=== PATIENT | female | born 1935 | race Caucasian/White ===

== ENCOUNTER 2016-05-31 21:51 | Inpatient (IN) | payer OTHER ==
[2016-05-31] MEDS ORDERED: ETOMIDATE 20 MG/10 ML VIAL IVP ONE (22:07)
[2016-05-31] MEDS ORDERED: ROCURONIUM 100 MG/10 ML VIAL IVP ONE ×2 (22:08→22:15)
[2016-05-31] MEDS ORDERED: PROPOFOL 200 MG/20 ML VIAL IVP ONE (22:11)
[2016-05-31 22:13] LABS: % IMMATURE GRANULYOCYTES 0.7 % (0.0-1.1); ABSOLUTE IMMATURE GRANULOCYTES 0.11 10^3/uL (0.00-0.10); ADD DIFF? NO; ADD MORPH? NO; ADD SCAN? NO; ATYPICAL LYMPHOCYTE FLAG 0 (0-99); FRAGMENT RBC FLAG 0 (0-99); HEMATOCRIT 46.5 % (38.0-47.0); HEMOGLOBIN 16.1 g/dL (12.6-16.3); LEFT SHIFT FLG 0 (0-99); LIPEMIA HEMOLYSIS FLAG 90 (0-99); MEAN CELL HEMOGLOBIN CONCENTR. 34.6 g/dL (32.4-36.7); MEAN CELL VOLUME 92.4 fL (81.5-99.8); PLATELET CLUMPS FLAG 0 (0-99); PLATELET COUNT 314 10^3/uL (150-400); RED BLOOD CELL COUNT 5.03 10^6/uL (4.18-5.33); RED CELL DISTRIBUTION WIDTH 12.7 % (11.5-15.2)
[2016-05-31] MEDS ORDERED: IOPAMIDOL (ISOVUE 370) 100 ML BTL IV ONE (22:14)
[2016-05-31] MEDS ORDERED: NS 2,000 ML IV ONE (22:14)
[2016-05-31] MEDS ORDERED: PROPOFOL/EMULSION 50 ML IV ONE (22:15)
[2016-05-31] MEDS: PROPOFOL/EMULSION 100 ML IV SCH (22:17)
--- NOTE | 2016-05-31 22:18 | CPEKG ---
Heart Rate: 127 RR Interval: 472 P-R Interval: 152 QRSD Interval: 74 QT Interval: 281 QTC Interval: 409 P Beason: 85 QRS Beason: -67 T Wave Beason: 79 EKG Severity - ABNORMAL ECG - EKG Impression: SINUS TACHYCARDIA , frequent PAC EKG Impression: LAD, CONSIDER LEFT ANTERIOR FASCICULAR BLOCK EKG Impression: BORDERLINE T ABNORMALITIES, ANT-LAT LEADS Electronically Signed By: Teddy Diamond 01-Jun-2016 22:25:38
[2016-05-31 22:22] LABS: INR 1.04 (0.83-1.16); PROTIME(PATIENT) 13.5 SEC (12.0-15.0)
[2016-05-31 22:23] LABS: APTT 25.4 SEC (23.0-38.0)
--- NOTE | 2016-05-31 22:23 | EDPHY ---
H & P HPI/ROS: HPI CHIEF COMPLAINT: Found down unresponsive, Intially Full Trauma Alert. HISTORY OF PRESENT ILLNESS: This patient is a 80-year-old female, she is brought in by EMS as a full trauma alert, she was found down by police and family after a well Fair checked. According to EMS and family at bedside now patient was found in her bathroom next to her toilet she was last seen or talked to at 5:00 p.m. last night.(over 24 hours a go, 5PM from previous day) The family became concerned that they could not get a hold of her last night or today. They realized when they arrived to her house her house was all dark there are no lights on her trash cans were still out front. The patient presents emergency room with she is not moving her right side she has a left-sided gaze preference. She is not protecting her airway, and due to this after discussion with family specifically her son nehemiah ferrell they wished her to be placed on a ventilator. Her neurological exam prior to being paralyzed showed right-sided hemiparesis, left-sided gaze preference. She has obvious trauma to the right periorbital region with swelling. Her pupils were equal round react to light however she does have a left gaze preference. It Is noted this patient initially came in as a full trauma alert. I downgraded this patient as she does not meet full trauma alert criteria. Past Medical History: Neuropathy Past Surgical History: unknown at this time Social History: Lives independently alone, private residence, denies drugs alcohol tobacco products per family Family History: Noncontributory ROS REVIEW OF SYSTEMS: A comprehensive 10 point review of systems is otherwise negative aside from elements mentioned in the history of present illness. Exam Constitutional triage nursing summary reviewed, vital signs reviewed, somnolent Eyes normal conjunctivae and sclera, EOMI, 3 mm equal round react to light left gaze preference HENT Head/Neck: Periorbital swelling around the right orbit, patient is placed in cervical collar, dry mucous membranes, no epistaxis, neck supple/ no meningismus, no raccoon eyes. Respiratory clear to auscultation bilaterally, normal breath sounds, no respiratory distress, no wheezing. Cardiovascular rate normal, regular rhythm, no murmur, no edema, distal pulses normal. Gastrointestinal soft, non-tender, no rebound, no guarding, normal bowel sounds, no distension, no pulsatile mass. Genitourinary no CVA tenderness. Musculoskeletal right-sided hemiparesis Skin pink, warm, & dry, no rash, skin atraumatic. Neurologic left-sided gaze preference, right-sided hemiparesis. Psychiatric normal mood/affect. Heme/Lymph/Immune no lymphadenopathy. Differential Diagnosis: Includes but is not limited to in no particular order a CVA, MCA infarct, head bleed, cardiac arrest, acute WA, sepsis, electrolyte abnormality, rhabdomyolysis, dehydration, renal failure Medical Decision Making: This patient has an obvious right-sided hemiparesis left-sided gaze preference concerning for stroke versus bleed. Patient will be intubated at the family's request. She will then proceed to CT scan head and neck for trauma as well as angiogram head and neck to visualize large vessel occlusion. Will obtain EKG, blood work including electrolytes, CK for rhabdo, she will be hydrated with IV fluids. It is noted she is hemodynamically stable at this time. This patient have a Steward placed. She received IV fluid bolus normal saline. She will be sedated with propofol to keep her comfortable on the ventilator. Re-evaluation: EKG interpretation by me on record in [employer] system. Impression time of EKG 05/16/1956 this is the initial EKG this is sinus rhythm, rate of 86 there is some motion artifact there is noted to be some ST depression in inferior leads. Left anterior fascicular block present. 2nd EKG time of EK, this is sinus tachycardia rate of 127 again there is slight ST depression seen in lead to [address] elevation visualized. There is sinus arrhythmia present. ED x-ray chest one view: cardiac silhouette is normal in size. Endotracheal tube is in appropriate position above the brigid. There is both lung rincon are appropriate. No pneumothorax. Image interpreted by myself. CT scan of the head without IV contrast for trauma. The results of the study are significant for a intraparenchymal left basal ganglia bleed The study was read by Dr. English. I viewed the images myself on the PACS system. CT scan of the cervical spine without IV contrast for trauma. The results of the study arenegative for acute trauma The study was read by Dr. English I viewed the images myself on the PACS system. CT scan of the angiogram head for stroke. The results of the study are negative for acute occlusion The study was read by Dr. English. I viewed the images myself on the PACS system. CT scan of the angiogram neck for stroke. The results of the study are negative for acute occlusion. The study was read by Dr. English. I viewed the images myself on the PACS system. 2240: Spoke with Dr. Banerjee with NeuroSurgery: She did review the CT imaging. She does understand this patient has a left basal ganglia bleed. She did recommend the patient's sodium be kept appropriate level 145. She will see the patient in consult in the ICU. No acute neurosurgical intervention at this time. Critical Care: Total Critical Care Time Spent Managing this Patient: 60 Minutes. This time was spent Exclusively with this patient. This Care was exclusive of procedures. The Organ System/life at risk was Neurological This Patient was in Critical Condition because Found down, Resp Failure, Rhabdomyolysis, Dehydration, Large Left Basal Ganglia Stroke. 2341: I have updated this patient's family this patient has a intraparenchymal basal ganglia bleed. She is in critical condition. She will be moved to the ICU under the care of Dr. Rodriguez hospitalist service. Keppra has been given. She is hemodynamically stable comfortable on ventilator. Source: Family, EMS Constitutional: Initial Vital Signs Temperature (C) 37.0 C 05/31/16 21:52 Heart Rate 93 05/31/16 21:52 Respiratory Rate 18 05/31/16 21:52 Blood Pressure 138/76 H 05/31/16 21:52 O2 Sat (%) 100 05/31/16 21:52 O2 Delivery Mode Non-Rebreather Mask O2 (L/minute) 15 Allergies/Adverse Reactions: No Known Allergies Allergy (Unverified 05/31/16 23:20) Home Medications: Medication Instructions Recorded Pregabalin [LYRICA] 100 mg PO BID PRN 05/31/16 Multivitamins [Multivitamin (*)] 1 tab PO DAILY 06/01/16 traMADol [Ultram 50 mg (*)] 50 mg PO TID PRN 06/01/16 Medical Decision Making - Data Points Laboratory Results: Laboratory Results 05/31/16 21:55 05/31/16 21:55 Medications Given: Discontinued Medications Etomidate (Etomidate) 20 mg IVP EDNOW ONE Stop: 05/31/16 22:08 Last Admin: 05/31/16 22:07 Dose: 20 mg Sodium Chloride (Ns) 2,000 mls @ 0 mls/hr IV ONCE ONE PRN Reason: As Directed Stop: 05/31/16 22:15 Last Admin: 05/31/16 21:55 Dose: 2,000 mls Propofol (Diprivan 10 Mg/Ml (Premix)) 50 mls @ 0 mls/hr IV EDNOW ONE; As Directed PRN Reason: Protocol Stop: 05/31/16 22:16 Last Admin: 05/31/16 22:18 Dose: Not Given Levetiracetam 1,000 mg/ Sodium (Chloride) 110 mls @ 440 mls/hr IV EDNOW ONE Stop: 05/31/16 22:57 Last Admin: 05/31/16 23:12 Dose: 110 mls Sodium Chloride 308 meq/ (Sterile Water) 1,077 mls @ 100 mls/hr IV CONT NOEMI Stop: 11/28/16 02:29 Last Admin: 06/01/16 13:16 Dose: 1,077 mls Potassium Chloride (Potassium Cl 10 Meq (Premix)) 100 mls @ 100 mls/hr IV Q1H NOEMI Stop: 06/01/16 11:59 Last Admin: 06/01/16 13:16 Dose: 100 mls Potassium Chloride (Potassium Cl 20 Meq (Premix)) 50 mls @ 25 mls/hr IV ONCE ONE Stop: 06/01/16 20:09 Last Admin: 06/01/16 18:33 Dose: 50 mls Propofol (Diprivan) 40 mg IVP EDNOW ONE Stop: 05/31/16 22:12 Last Admin: 05/31/16 22:11 Dose: 40 mg Rocuronium [place] (Zemuron) 100 mg IVP EDNOW ONE Stop: 05/31/16 22:09 Last Admin: 05/31/16 22:08 Dose: 100 mg Departure - Departure Disposition: [facility] Acute Clinical Impression: Intraparenchymal hemorrhage of brain Respiratory failure Qualifiers: Chronicity: acute Respiratory failure complication: hypoxia Qualifier Code: ( J96.01) Acute respiratory failure with hypoxia Condition: Critical
[2016-05-31 22:25] LABS: ALANINE AMINOTRANSFERASE 42 IU/L (9-52); ALBUMIN 4.5 g/dL (3.5-5.0); ALKALINE PHOSPHATASE 80 IU/L (38-126); ANION GAP 14 mEq/L (8-16); ASPARTATE AMINOTRANSFERASE 70 IU/L (14-46); BILIRUBIN,TOTAL 1.9 mg/dL (0.1-1.4); BILIRUBIN-CONJUGATED 0.6 mg/dL (0.0-0.5); BILIRUBIN-UNCONJUGATED 1.3 mg/dL (0.0-1.1); CALCIUM 9.6 mg/dL (8.5-10.4); CARBON DIOXIDE 22 mEq/l (22-31); CHLORIDE 106 mEq/L (97-110); CREATININE 0.7 mg/dL (0.6-1.0); GLOMERULAR FILTRATION RATE > 60; GLUCOSE 153 mg/dL (70-100); MAGNESIUM 2.2 mg/dL (1.6-2.3); POTASSIUM 3.9 mEq/L (3.5-5.2); SODIUM 142 mEq/L (134-144); TOTAL PROTEIN 7.4 g/dL (6.3-8.2)
[2016-05-31 22:31] LABS: COLOR YELLOW; LEUKOCYTE ESTERASE,URINE NEGATIVE (NEGATIVE); NITRITE,URINE NEGATIVE (NEGATIVE)
[2016-05-31 22:36] LABS: TROPONIN I 0.101 ng/mL (0-0.034)
[2016-05-31 22:36] LABS: MUCUS 1+ /lpf (NONE-1+); RBC,URINE 15-25 /hpf (0-3)
[2016-05-31] MEDS ORDERED: levETIRAcetam 1,000 MG in NS 100 ML IV ONE (22:43)
[2016-05-31] MEDS ORDERED: ETOMIDATE 40 MG/20 ML INJ ONE ×2 (22:44→22:51)
[2016-05-31] MEDS ORDERED: ROCURONIUM 100 MG/10 ML VIAL ONE (22:52)
--- NOTE | 2016-05-31 22:55 | DX ---
Portable AP Supine Chest at 10:02 p.m. and 10:13 p.m. Clinical History: 80-year-old female found down. Comparison Study: None available. Findings: PORTABLE AP SUPINE CHEST, at 10:02 p.m.: Telemetry monitoring lead lines are present. There are postc holecystectomy clips in the right upper quadrant of the abdomen, and there is also a curvilinear clip in the left upper quadrant of the abdomen. The cardiac and mediastinal silhouette is normal in size, given the degree of rightward rotation. There is no focal alveolar consolidation, pleural effusion, peripheral interstitial edema, or pneumothorax. There are degenerative features of the spine. There i s no rib fracture. Impression: Rightward rotational change, with no acute abnormality identified. PORTABLE AP SUPINE CHEST, at 10:13 p.m.: In the interim, the patient has been intubated, with the ET tube terminating 5.4 cm above the brigid. Telemetry monitoring lead lines are noted. The patient is b shu-centered on this exam compared to the study at 10:02 p.m. The cardiac and mediastinal silhouett e is normal. There is no focal infiltrate, atelectasis, or pneumothorax. Impression: Status post intubation.
[2016-05-31 23:01] LABS: CK-MB INTERPRETATION NEGATIVE (NEGATIVE)
--- NOTE | 2016-05-31 23:40 | CT ---
CT Scan of the Head (Without Contrast) Clinical History: 80-year-old female last seen active at 5 p.m. yesterday, found down this evening an d not moving her right side. Technique: Axial unenhanced images were obtained from the vertex through the skull base, reformatted at 5.00 and 1.50 mm increments, and reviewed in bone, brain, and subdural windows. Images were repro cessed in parasagittal and paracoronal planes. Dose reduction techniques were utilized. The DFOV is 2 6.4 cm. Comparison Study: None. Findings: There is acute hemorrhagic infarct involving the left basal ganglia with a Hounsfield unit measurement of 56, with surrounding vasogenic edema. There is also effacement of the ipsilateral left lateral ventricle, and 4 mm of citv-wb-ilfzu subfalcine shift. There is extensive confluent chronic microvascular ischemic gliosis. The ventricles and basilar cisterns are otherwise normal in size, giv en the patient's age. The paranasal sinuses and the mastoids are patent. The craniocervical junction, sella turcica, pineal gland, and the orbits are within normal limits. There is extensive scalp edema along the right calvarium and also in the right periorbital distribution. There are a few dots of ai r over the right preseptal space. Each globe is intact. The retrobulbar intra and extraconal fat appe ar normal. The patient is intubated. There is chronic mucosal thickening of the maxillary ethmoid and frontal sinuses. Impression: 1. Acute left basal ganglia hemorrhagic infarct with some mass effect, and mild yoas-fl-dggqw subfalc ine herniation. 2. Extensive microvascular ischemic gliosis. 3. Scalp edema along the right calvarium and right periorbital region. If there is further clinical concern regarding the patient's symptoms, MR imaging is suggested, if n ot otherwise contraindicated. I provided an interpretation to Dr. Silviano Gonzalez at 10:31 p.m. on May 31, 2016 regarding the abo ve findings. He has also requested a CTA of the head and neck, which is to be performed.
[2016-05-31 23:43] LABS: BASE EXCESS -5.1 mEq/L (-2.5-2.5); BICARBONATE 19 mEq/L (22-26); MEASURED OXYGEN SATURATION 100 % (92-95); PCO2 35 mmHg (34-38); PO2 313 mmHg (65-75); TCO2 20 mEq/L (23-27)
[2016-05-31 23:45] LABS: END TIDAL CO2 31; O2 CONCENTRATIION 80 % (0-100); P/F RATIO 391 RATIO; PATIENT RATE 18; PIP 22.5; PRESSURE SUPPORT 7; SIMV YES
--- NOTE | 2016-05-31 23:49 | CT ---
Unenhanced CT Scan of the Cervical Spine Clinical History: 80-year-old female found down. Rule out acute cervical osseous abnormality. TECHNIQUE: A multidetector unenhanced helical CT scan was obtained from the clivus caudally through t he upper thoracic spine, with images reformatted at 1.50 mm increments, and are reviewed in soft tiss ue, bone, and lung windows. Parasagittal and paracoronal reconstructed images are reviewed on the wor kstation. The DFOV is 15.6 cm. COMPARISON STUDY: None. FINDINGS: The bones are demineralized. There is mild chronic loss of height of the posterior C6 centr um with large dorsal and smaller ventral traction osteophytes present. There is some mild C5-C6 and m oderate C6-C7 degenerative disk space narrowing. There is no acute fracture or facet malalignment. Th ere is osseous fusion of the facet joints on the right at C4-C5 and C5-C6. The craniocervical junctio n is normal. The predental space is normal. The atlantoaxial alignment is maintained. The base and th e tip of the dens are unremarkable. The prevertebral soft tissues are notable for an intubation with the endotracheal terminating approximately 4 cm above the brigid on the diazo technician topogram. The lung apic es are clear. The thyroid gland is hypoplastic. There is no prevertebral hematoma or epidural hematom a identified. At the C2-C3 level, there is no significant central canal or neural foraminal stenosis. At the C3-C4 level, there is moderate bilateral facet hypertrophy with uncovertebral osteophyte forma tion resulting in mild bilateral neural foraminal stenosis. The central canal remains patent. At the C4-C5 level, there is moderate bilateral facet hypertrophy. The central canal and neural chen cat remain patent. At the C5-C6 level, there is severe right and moderate left facet hypertrophy. There is mild right ne ural foraminal narrowing. A small dorsal disk osteophyte complex results in mild right paracentral ca nal narrowing. The left neural foramen is patent. At the C6-C7 level, there is degenerative disk space narrowing with a dorsal disk osteophyte complex resulting in at least a moderate degree of central canal stenosis. Uncovertebral osteophytes and face t hypertrophy result in severe left and moderate right neural foraminal stenosis. At the C7-T1 level, there is no significant central canal or neural foraminal stenosis. Impression: Senescent features of the spine, most pronounced at the C6-C7 level, with no acute cervic al osseous abnormality identified. Results were discussed with Dr. Leandro Gonzalez at 11:15 p.m. on May 31, 2016. If there is further clinical concern regarding the patient's symptoms, correlative MR imaging could b e considered, if otherwise not contraindicated.
[2016-06-01] MEDS ORDERED: ONDANSETRON DISINTEGRATING 4 MG TAB PO PRN (00:05)
[2016-06-01] MEDS ORDERED: ONDANSETRON 4 MG/2 ML VIAL IVP PRN (00:05)
[2016-06-01] MEDS ORDERED: ACETAMINOPHEN 325 MG TAB PO PRN (00:05)
--- NOTE | 2016-06-01 00:06 | CT ---
CT Angiography of the Head and Neck Clinical History: 80-year-old female last seen active at 5 p.m. yesterday, and found down this evenin g, and not moving the right side of her body. Unenhanced CT imaging demonstrate an acute left basal g anglia hemorrhagic infarction. Dr. Gonzalez has also requested a CTA. Comparison Studies: Unenhanced CT scan of the brain performed at 10:25 p.m.. Technique: Axial contrast-enhanced images were obtained from the skull base through the thoracic inle t following the uneventful intravenous administration of 75 mL mL Isovue-370. Multiplanar reformatio ns were performed. Dose reduction techniques were utilized. Findings: CT ANGIOGRAPHY OF THE NECK: There is a common origin of the right innominate and left common carotid arteries ("bovine" configuration). The common carotid arteries, carotid bulbs and bifurcations, and t he internal and external carotid arteries are patent. There is tortuosity of the proximal left post graduate internship al carotid artery shortly after its origin. There is no intraluminal thrombus, eccentric stenosis, or dissection. The vertebral arteries are also patent bilaterally. The left vertebral artery has a "ellen rpin" turn near its origin. The vessels are relatively codominant. Impression: There is no hemodynamically significant stenosis, dissection, or intraluminal thrombus. CT ANGIOGRAPHY OF THE BRAIN: The distal cervical, petrous, cavernous, and supraclinoid portions of th e internal carotid arteries are patent. The M1, M2, M3 trifurcation vessels are patent, although ther e is some mild attenuation of the caliber of the more peripheral left middle cerebral artery vessels secondary to some edema or spasm associated with the known left basal ganglia hemorrhagic infarct. Th e A1 and A2 segments, and the anterior communicating artery are patent. There is no intraluminal thro mbus observed. The distal vertebral arteries, the vertebrobasilar confluence, the posterior inferior cerebellar arteries, basilar tip, superior cerebellar arteries, and the posterior cerebral arteries a re patent. 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 There is no localized aneur ysm. The visualized dural venous sinuses are notable for a dominant right transverse sinus and more d iminutive-appearing left transverse sinus. Likewise, there is a dominant right internal jugular vein, and a significantly attenuated left internal jugular vein. Impression: Left basal ganglia hemorrhagic infarction, precluding administration of thrombolysis. Results were discussed with Dr. Leandro Gonzalez at 11:15 p.m. on May 31, 2016. Stenoses are calculated using [place] Symptomatic Carotid Endarterectomy Trial (NASCET) criter ia.
[2016-06-01] MEDS ORDERED: SODIUM Cl 3% 500 ML IV SCH (00:15)
[2016-06-01] MEDS ORDERED: LABETALOL HCL 5 MG/ML 20 ML MDV IVP PRN (00:26)
[2016-06-01] MEDS ORDERED: NS 1,000 ML IV SCH (00:30)
--- NOTE | 2016-06-01 01:05 | GHP ---
[f rep st] HISTORY AND PHYSICAL DATE OF ADMISSION: 05/31/2016 DATE OF EVALUATION: 05/31/2016 CHIEF COMPLAINT: Found down. HISTORY OF PRESENT ILLNESS: This is a 80-year-old female who was found down today. She was last seen normal on 05/30/2016 around noon. The family suspects that she was normal until bedtime that evening. They became worried on May 31 when she did not return phone calls. Her son went over to her house, called police, eventually ended up gaining access to the house. He found her up in her bedroom, slumped on the side of her toilet, on the right side of her face. Her granddaughter was present at that time as well. She says that the patient was trying to pull herself up, though she was only using the left side of her body and the right side was paralyzed. EMS was called. She was taken to the emergency department. In the emergency department, Dr. Medina noted that she was nonresponsive. Family says that she had never spoken any words, though she became less responsive en route to the ED. She was intubated in the emergency department. When I am seeing her, she is intubated, on a low-dose propofol sedation. Family tells me that she is not taking any blood thinners including aspirin. PAST MEDICAL/SURGICAL HISTORY: Trigeminal neuralgia. MEDICATIONS: Tramadol. ALLERGIES: None. FAMILY HISTORY: Parents are . SOCIAL HISTORY: Accompanied by her 2 children as well as 2 grandchildren. Her a few years ago. REVIEW OF SYSTEMS: A 10-point review of systems is unobtainable given her current status. PHYSICAL EXAM: VITAL SIGNS: Blood pressure 138/76, heart rate 93, respiration rate 18, saturating 100% on the ventilator, temperature 37.0. GENERAL: The patient is an obtunded female who appears in no acute distress. HEENT: Shows an ET tube in place. CARDIOVASCULAR: Shows a regular rate and rhythm. There are no murmurs, rubs, or gallops. PULMONARY: Shows her lungs are clear to auscultation bilaterally. ABDOMEN: Soft, nontender, nondistended. SKIN: Shows no rash. : Shows a Steward in place. NEUROLOGIC: Shows her to have a Bosworth Coma Scale of 3. She is nonresponsive. She is flaccid on both sides. Reflexes are diminished and symmetric bilaterally. LAB DATA: White count is 16. INR is 1. ABG shows her pCO2 to be 35, her pH to be 7.36. Basic metabolic panel is unremarkable. Her unconjugated bilirubin is 1.3. Her AST is 70. Creatine kinase is 1597. Troponin of 0.101. Urinalysis shows her to have blood and protein. Tox screen is negative. DATA: 1. I discussed this with Dr. Medina, will admit to the ICU. 2. The head CT shows acute left basal ganglia hemorrhagic infarct with some mass effect and some mild [id number]-lr-[id number] subfalcine herniation as well as scalp edema. 3. CT angio of head and neck shows nothing significant in terms of stenosis. 4. Chest x-ray shows her to be intubated, there is nothing acute identified. 5. C-spine CT scan shows nothing acute. IMPRESSION AND PLAN: This is a 80-year-old female with a hemorrhagic infarct who is obtunded. Acute left basal ganglia hemorrhagic infarct: She is quite obtunded. There is some edema surrounding this. She does have mild midline shift. Dr. Valladares with Neurosurgery has been consulted and will follow. Per Dr. Valladares, this is nonoperative, she has reviewed the CT scans. I will place a neurology consult as well. We will attempt to keep her sodium above 145, I have started hypertonic saline. IV antihypertensives to keep systolic BP less than 140. I have discussed with the family the potential poor prognosis. They are aware of the severity of this insult. Billing: I spent 60 minutes of direct floor critical care time on 05/31/2016 caring for the patient. /[id number]/MODL MTDD
[2016-06-01] MEDS ORDERED: NS W/ 20 KCl/L 1,000 ML IV SCH (02:00)
[2016-06-01] MEDS: SODIUM CL 23.4% 308 MEQ in WATER FOR INJECTION,STERILE 1,000 ML IV SCH ×2 (02:38→13:16)
[2016-06-01] MEDS ORDERED: ACETAMINOPHEN 650 MG/20.3 ML UDCUP ONE (03:36)
[2016-06-01] MEDS ORDERED: ACETAMINOPHEN 650 MG/20.3 ML UDCUP PO PRN (03:38)
[2016-06-01 05:39] LABS: % IMMATURE GRANULYOCYTES 0.2 % (0.0-1.1); ABSOLUTE IMMATURE GRANULOCYTES 0.03 10^3/uL (0.00-0.10); ADD DIFF? NO; ADD MORPH? NO; ADD SCAN? NO; ATYPICAL LYMPHOCYTE FLAG 0 (0-99); FRAGMENT RBC FLAG 0 (0-99); HEMATOCRIT 40.1 % (38.0-47.0); HEMOGLOBIN 13.6 g/dL (12.6-16.3); LEFT SHIFT FLG 20 (0-99); LIPEMIA HEMOLYSIS FLAG 90 (0-99); MEAN CELL HEMOGLOBIN 31.5 pg (27.9-34.1); MEAN CELL HEMOGLOBIN CONCENTR. 33.9 g/dL (32.4-36.7); MEAN CELL VOLUME 92.8 fL (81.5-99.8); MEAN PLATELET VOLUME 9.2 fL (8.7-11.7); PLATELET CLUMPS FLAG 0 (0-99); PLATELET COUNT 243 10^3/uL (150-400); RED BLOOD CELL COUNT 4.32 10^6/uL (4.18-5.33); RED CELL DISTRIBUTION WIDTH 12.7 % (11.5-15.2)
[2016-06-01 05:49] LABS: INR 1.16 (0.83-1.16); PROTIME(PATIENT) 14.8 SEC (12.0-15.0)
[2016-06-01 05:58] LABS: CARBON DIOXIDE 23 mEq/l (22-31); CHLORIDE 114 mEq/L (97-110); POTASSIUM 3.1 mEq/L (3.5-5.2); SODIUM 145 mEq/L (134-144)
[2016-06-01 05:59] LABS: ALANINE AMINOTRANSFERASE 37 IU/L (9-52); ALBUMIN 2.8 g/dL (3.5-5.0); ALKALINE PHOSPHATASE 50 IU/L (38-126); ANION GAP 8 mEq/L (8-16); ASPARTATE AMINOTRANSFERASE 55 IU/L (14-46); BILIRUBIN,TOTAL 1.4 mg/dL (0.1-1.4); CALCIUM 8.4 mg/dL (8.5-10.4); CREATININE 0.6 mg/dL (0.6-1.0); GLOMERULAR FILTRATION RATE > 60; GLUCOSE 135 mg/dL (70-100); MAGNESIUM 1.9 mg/dL (1.6-2.3); TOTAL PROTEIN 5.5 g/dL (6.3-8.2)
[2016-06-01 06:06] LABS: TROPONIN I 0.362 ng/mL (0-0.034)
[2016-06-01 06:24] LABS: CK-MB INTERPRETATION NEGATIVE (NEGATIVE)
[2016-06-01 06:26] LABS: CREATINE KINASE-MB FRACTION 7.69 ng/mL (0-3.19)
[2016-06-01 06:28] LABS: BASE EXCESS -1.7 mEq/L (-2.5-2.5); BICARBONATE 21 mEq/L (22-26); MEASURED OXYGEN SATURATION 99 % (92-95); PCO2 32 mmHg (34-38); PO2 125 mmHg (65-75); TCO2 22 mEq/L (23-27)
[2016-06-01 06:30] LABS: O2 CONCENTRATIION 40 % (0-100); P/F RATIO 313 RATIO; PATIENT RATE 20; SIMV YES
[2016-06-01 06:31] LABS: PRESSURE SUPPORT 7
[2016-06-01] MEDS ORDERED: PROTOCOL POTASSIUM 1 DOSE MISC PRN ×2 (06:48→23:45)
--- NOTE | 2016-06-01 07:58 | CT ---
CT Scan of the Head (Without Contrast) Clinical History: 80-year-old female admitted last evening after being found down with a hemorrhagic left basal ganglia infarct and right-sided paralysis, presenting for follow-up. Technique: Axial unenhanced images were obtained from the vertex through the skull base, reformatted at 5.00 and 1.50 mm increments, and reviewed in bone, brain, and subdural windows. Images were repro cessed in parasagittal and paracoronal planes. Dose reduction techniques were utilized. The DFOV is 2 6.1 cm. Comparison Study: Unenhanced CT scan of the brain from last evening. Findings: Again noted is focal increased attenuation in the left basal ganglia with a Hounsfield unit measurement of 54, consistent with hemorrhage. There has been no interim development of more hemorrh age. There is associated mass effect with effacement of the left lateral ventricle and 4 mm of subfal cine shift, [id number]. There is extensive periventricular diminished attenuation, which is a nons pecific finding, and may be related to chronic microvascular ischemic gliosis the differential consid erations would include postinflammatory or posttraumatic change, demyelination, leukoencephalopathy, or prior radiation or systemic chemotherapy treatment. The brainstem and cerebellum are normal. There is a partially empty sella turcica. The craniocervical junction is normal. The orbits are unremarkable. There is some chronic paranasal sinus mucosal thick ening of the maxillary, ethmoid, sphenoid, and inferior frontal sinuses. The mastoids are patent. The re is some atherosclerotic calcification of the cavernous carotid arteries. Extensive right-sided sca lp edema is again noted. Impression: Findings are similar to last evening's exam, with no new hemorrhage. If there is further clinical concern regarding the patient's symptoms, MR imaging is suggested, if no t otherwise contraindicated.
[2016-06-01] MEDS: POTASSIUM Cl (KCl) 100 ML IV SCH ×4 (08:19→13:16)
[2016-06-01] MEDS: FAMOTIDINE 20 MG/NACL 50 ML IV SCH ×2 (08:19→20:16)
[2016-06-01] MEDS: PROPOFOL/EMULSION 100 ML IV SCH (08:19)
[2016-06-01] MEDS: CHLORHEXIDINE GLUCONATE 15 ML UDL PO SCH ×2 (08:19→20:18)
--- NOTE | 2016-06-01 08:57 | GCON ---
Seen and examined agree with dictation. [f rep st] CONSULTATION NEUROSURGERY CONSULTATION. CHIEF COMPLAINT: Altered mental status. Acute left basal ganglia hemorrhage. HISTORY OF PRESENT ILLNESS: The patient is a 80-year-old female patient, who was found down yesterday. She was last seen on May 30, 2016, around noon, and she was normal at that time. The patient's son had become concerned on May 31, when she did not return phone calls. Patient's son went to her home and called the police in order to gain access to the home. He found the patient in her bedroom, slumped down the side of her toilet on the right side of her face. The patient was trying to use the left side of her body to pull herself up, but her right side appeared paralyzed. EMS was called and the patient was transferred to [facility] emergency room. In the emergency room, the patient was nonresponsive and the patient was subsequently intubated. Currently, the patient is intubated, on low-dose propofol sedation. Per report from the family, patient was not on any blood thinners prior to hospital admission. PAST MEDICAL HISTORY: Trigeminal neuralgia. MEDICATIONS: Tramadol. ALLERGIES: None. FAMILY HISTORY: Parents are . SOCIAL HISTORY: The patient lives at home and her a few years ago. She has 2 children and 2 grandchildren in the area. REVIEW OF SYSTEMS: Unobtainable, given the patient is intubated and sedated. PHYSICAL EXAMINATION: VITAL SIGNS: Blood pressure 120/60, MAP is 80, heart rate 65, respirations 18, O2 saturation is 100% on the ventilator, temperature is 38. NEUROLOGIC: Patient withdraws to her left side to painful stimuli. She is not withdrawing the right side to painful stimuli. Her pupils are approximately 3 mm, nonreactive. She is on sedation. HEENT: She has some bruising and swelling over her face. IMAGING: Cervical spine CT: senescent features in the spine most pronounced at the C6-7 level with no acute cervical osseous abnormality identified. Chest x-ray: Rightward rotational change with no acute abnormality identified. Additional chest x-ray, status post intubation. Head CTA: Impression: Left basal ganglia hemorrhagic infarction precluding administration of thrombolysis. CTA: There is no hemodynamic dynamically significant stenosis, dissection, or intraluminal thrombus. Head CT: Acute left basal ganglia hemorrhagic infarct with some mass effect and mild [id number]-ru-zetuc subfalcine herniation. Extensive microvascular ischemic gliosis. Scalp erythema along the right calvarium and right periorbital region. LABORATORY DATA: White blood cells 12.3, red blood cells 4.32, hemoglobin is 13.6, hematocrit is 40.1, MCV is 92.8, RDW is 12.7, platelet count is 243. PT is 14.8, INR is 1.16. Blood gas: Temperature is 38, pCO2 of 32, pO2 of 125, total CO2 is 22, pH is 7.43, O2 saturation is 99. Sodium is 145, potassium is 3.1, chloride is 114, carbon dioxide 23, bicarb 21, anion gap 8, BUN 21, creatinine 0.6, GFR greater than 60. Glucose 135, calcium 8.4, phosphorus 2.5, magnesium 1.9. Bilirubin 1.4, AST is 55, ALT is 37, alkaline phosphatase 50. Creatine kinase 1362, troponin 0.362. Total protein 5.5, albumin 2.8. Urinalysis: Red blood cells 15-25, white blood cells 1-3, leukocyte esterase is negative. Toxicology screen is negative. IMPRESSION: This is a 80-year-old female, with acute left basal ganglia hemorrhagic stroke. PLAN: I have seen and examined the patient this morning. She has had a significant hemorrhage that is nonoperative at this time. She is undergoing a repeat scan this morning. At this time, would plan to elevate her sodium above 145 and she is on 1.8% sodium fluids. Sodium this morning is 145, so I will continue the fluids at their current rate. She is also on antihypertensive to keep her systolic blood pressure less than 140. The patient does appear to have right-sided paralysis, given that she will move the left side independently and also withdraws from pain; however, she is not moving her right side. Her condition is quite guarded at this time, Dr. Valladares will be in to see the patient later this afternoon. Please contact the neurosurgery service with any questions or concerns. /[id number]/MODL MTDD
--- NOTE | 2016-06-01 09:02 | DX ---
Portable AP Semiupright Upright Chest June 01, 2016 at 6:15 a.m. Clinical History: 80-year-old female admitted last evening with a hemorrhagic left basal ganglia infa rct, currently intubated. Comparison Study: The previous evening's chest radiograph is not currently available for comparison. Findings: There is an endotracheal tube which terminates 4.8 cm above the brigid. There is esophagoga stric tube which terminates in the gastric antrum. The cardiac and mediastinal silhouettes are normal in size. The patient is slightly rotated to the left. There is no focal infiltrate, pleural effusion , peripheral interstitial edema, or pneumothorax. There are postcholecystectomy clips in the right up per quadrant of the abdomen. There are senescent features of the spine. Impression: Status post intubation and placement of an esophagogastric tube.
--- NOTE | 2016-06-01 13:16 | WOCRNPDOC ---
WOCRN Advanced Assessment Note - Skin Integrity Problem, Advanced Assess Right Hip Pressure Injury Dressing Type: Allevyn Life Dressing Description: Clean/Dry, Intact Exudate Amount: Scant Exudate Color: Clear Exudate Characteristic(s): Clear Integumentary Issue Intervention: Visualized Under Dressing Bonnie Wound Tissue: Blanching, Erythema Bonnie Wound Swelling: Mild Wound Bed Color: Red Wound Bed Constitution: Smooth Tissue, De-roofed Serous Blister Wound Edges: Irregular Site Odor: None Site Measurement - Head-to-Toe Length X Width X Depth (cm): 7.5cmx8.5cmx0.1cm Pressure Injury Stage: Stage 2 Pressure Injury Present on Admit: Yes Skin Integrity Problem Comment: Large area of blanching and non-blanching erythema noted on R hip, w/ de-roofed blister on anterior aspect from 12-5 o' clock draining clear exudate. This wound is a mix of stage I and stage II pressure injuries, w/ the greatest portion consisting of the de-roofed blister, consistent w/ stage II. Site re-covered w/ Allevyn Life dressing, and orders written to off-load patient's R hip at all times. Right Orbital Pressure Injury Dressing Type: Open to Air Exudate Amount: None Exudate Characteristic(s): None Bonnie Wound Tissue: Erythema, Non-blanching Bonnie Wound Swelling: Mild Wound Bed Color: Red Wound Bed Constitution: Intact Serous Filled Blister Site Odor: None Pressure Injury Stage: Stage 1 (superior to blister on R eye, [id number]), Stage 2 (intact blister extending from R eyelid to below R eye, 3.8cmx4.5cmx blister ) Pressure Injury Present on Admit: Yes Skin Integrity Problem Comment: Large, intact serous blister extending from R eyelid to below the R eye, w/ erythema and swelling evident, consistent w/ stage II pressure injury. Patient also has an area of non-blanching erythema superior to blister, indicative of stage I. These injuries are consistent w/ report that patient was found in her home lying on her R side after an estimated 16-24 hours per family report. Due to location of this wound, site left open to air. Advised laundry route driverSIMEON Alvarado to re-consult if blister begins draining. Right Lateral Face Pressure Injury Dressing Type: Open to Air Exudate Amount: None Exudate Characteristic(s): None Bonnie Wound Tissue: Swollen Bonnie Wound Swelling: Mild Wound Bed Color: Red Site Measurement - Head-to-Toe Length X Width X Depth (cm): [id number] Pressure Injury Stage: Stage 1 Pressure Injury Present on Admit: Yes Skin Integrity Problem Comment: Large area on non-blanching erythema noted to the R side of patient's face, extending from her christian down her cheekbone and inferiorly. This injury is consistent in appearance w/ a stage I pressure injury. Bonnie-wound tissue is presently intact and blanching. Right Elbow Pressure Injury Dressing Type: Allevyn Life Dressing Description: Clean/Dry, Intact Exudate Amount: None Exudate Characteristic(s): None Integumentary Issue Intervention: Dressing Applied Bonnie Wound Tissue: Blanching, Intact Bonnie Wound Swelling: None Wound Bed Color: Purple Site Odor: None Site Measurement - Head-to-Toe Length X Width X Depth (cm): [id number] Pressure Injury Stage: Deep Tissue Injury (DTI) Pressure Injury Present on Admit: Yes Skin Integrity Problem Comment: Discrete, dark purple ecchymosis noted over bony prominence of elbow, consistent in appearance w/ a suspected deep tissue injury. Skin is presently intact w/ no swelling evident. Site covered w/ Allevyn Life dressing, and orders written to off-load patient's entire R side. Right Dorsal Hand Pressure Injury Dressing Type: Open to Air Exudate Amount: None Exudate Characteristic(s): None Bonnie Wound Tissue: Blanching, Intact Bonnie Wound Swelling: None Wound Bed Color: Red Wound Bed Constitution: Smooth Tissue Site Odor: None Site Measurement - Head-to-Toe Length X Width X Depth (cm): 0.4cmx0.6cmx0.1cm Pressure Injury Stage: Stage 2 Pressure Injury Present on Admit: Yes Skin Integrity Problem Comment: Discrete area distal to 2nd digit on the dorsal aspect of R hand w/ partial-thickness tissue loss evident, consistent w/ stage II pressure injury. Bonnie-wound skin is intact and blanching. Order written for protective dressing to be applied.
--- NOTE | 2016-06-01 14:12 | GCON ---
[f rep st] CONSULTATION INPATIENT CONSULTATION NOTE DATE OF CONSULTATION: 06/01/2016 CHIEF COMPLAINT: Brain bleed. HISTORY OF PRESENT ILLNESS: Dr. Luis M Wong of the hospitalist service consulted Neurology for eval uation of the patient's brain hemorrhage. Results of this evaluation were placed in the EMR for his review. This is a 80-year-old female with no significant past medical history, other than trigeminal neuralgi a, who was reported to be in a state of good health, living independently, on May 30, 2016, when she was last known normal. Her family tried to reach her on May 31, 2016. She did not answer th e phone, so they went to her home. They found her lying on the ground with right-sided weakness and confusion. She was brought by EMS to [facility] emergency room. There was question of respiratory distress, so she was intubated. There, a head CT showed a left basal ganglia hemorrhage . This prompted admission to the ICU and evaluation by Neurosurgery. She did not require surgery an d is still intubated. PAST MEDICAL HISTORY: Trigeminal neuralgia. HOME MEDICATIONS: Tramadol. ALLERGIES: None. FAMILY HISTORY: Parents are . SOCIAL HISTORY: Patient lives alone. REVIEW OF SYSTEMS: Could not be provided as the patient is intubated and cannot provide that history . PHYSICAL EXAMINATION: VITAL SIGNS: Blood pressure 111/55, heart rate 70, respirations 18, saturatin g 100% on ventilation, temperature 37.8 degrees Celsius, normal sinus rhythm. GENERAL: Intubated an d sedated. EYES: Funduscopic exam could not visualize optic discs. LUNGS: Clear to auscultation b ilaterally. No rhonchi, rales. HEART: Regular rate and rhythm. No murmurs. No carotid bruits aus cultated. NEUROLOGIC: Mental status, the patient is sedated and intubated. Cranial nerves: Pupils equal, round, reactive to light. Bilateral face appears symmetric with no obvious weakness, althoug h it is difficult to determine innervation. Motor/sensory exam: She does withdraw the le ft arm and left leg stimuli, right arm, right leg not so much. Reflexes: Bilateral brach ioradialis 2/4. Coordination and gait could not be tested due to the patient's mentation. LABS: May 31, 2016: CBC with a white blood cell count of 16. CK elevated at 1597. Coagulation panel normal. Chemistry with a glucose 153. RADIOLOGY: May 31, 2016: Head CT shows a left basal ganglia hemorrhage with surrounding mass ef fect and some midline shift. I personally visualized the study. May 31, 2016: CT angiogram of the head and neck shows no acute abnormalities. ASSESSMENT: 1. Left basal ganglia intracerebral hemorrhage: The patient most likely had a hypertensive hemorrha ge based on the location of her bleed in the left basal ganglia. Other possibilities would be an aty pical tumor bleed or ischemic stroke that became hemorrhagic. At this time, I believe blood pressure control and ICU care are appropriate. We could consider an MRI with and without contrast at a later date to exclude other possibilities, but it is not needed at this time. 2. Respiratory failure: Intubated. RECOMMENDATIONS: 1. Blood pressure deferred to Neurosurgery, but it seems appropriate to aim for a systolic blood pre ssure less than 160. 2. Neurosurgery is following and directing care. 3. Avoid antiplatelet and anticoagulation agents at this time. 4. DVT prophylaxis recommended with SCDs. 5. Extubation as soon is clinically possible. 6. Proceed with PT, OT, and speech therapy to determine what kind of function the patient will get b ack. At this point, her prognosis is uncertain. Neurology will continue to follow. /[id number]/MODL
--- NOTE | 2016-06-01 14:44 | HOSPPROG ---
Hospitalist Progress Note Assessment/Plan: #Basal ganglia CVA: right-sided deficits. Still somnolent which would not be expected with location. -goal BP <160, Na 145-155, q8h Na. Cont hypertonic saline -Neurology consulted #Acute encephalopathy: not suspected due to size and location of CVA. No e/o infection. #Acute hypoxic resp failure: vented #Diet: NPO #DVT ppx: no anticoagulants #Disp: ; #DVT px: Objective: Vital Signs Temp Pulse Resp BP Pulse Ox 37.8 C 74 18 118/57 L 100 06/01/16 14:00 06/01/16 14:00 06/01/16 14:00 06/01/16 14:00 06/01/16 14:00 Laboratory Results 06/01/16 05:00 06/01/16 05:00 05/31/16 06/01/16 06/02/16 05:59 05:59 05:59 Intake Total 2560.5 Output Total 1540 Balance 1020.5 PT 14.8 SEC (12.0-15.0) 06/01/16 05:00 INR 1.16 (0.83-1.16) 06/01/16 05:00 - Physical Exam Constitutional: no apparent distress Eyes: other (nonreactive pupils) Ears, Nose, Mouth, Throat: moist mucous membranes Cardiovascular: regular rate and rhythym Respiratory: no respiratory distress, no rales or rhonchi Gastrointestinal: normoactive bowel sounds Genitourinary: no bladder fullness Skin: warm Musculoskeletal: other (0/5 right side.) Neurologic: other (withdrawals to pain on left) Psychiatric: encephalopathic ICD10 Worksheet Patient Problems: Problems Problem Status Diagnosed Intraparenchymal hemorrhage of brain Acute Respiratory failure Acute
--- NOTE | 2016-06-01 15:13 | GCON ---
[f rep st] CONSULTATION PULMONARY/CRITICAL CARE CONSULTATION DATE OF CONSULTATION: 06/01/2016 REFERRING PHYSICIAN: Roxy Selby MD REASON FOR CONSULTATION: Evaluation and management of respiratory failure. HISTORY: The patient is a 80-year-old woman, who was in her usual state of health, living [facility], when she was last seen on 05/30/2016 around noon. The next day, she did not return phone calls and her son went over to her house. He found her in her bedroom slumped on the side of her toilet wi th right-sided weakness. She was apparently trying to use the left side of her body yesterday, but b y the time she got to the emergency department she was less responsive and unable to protect her airw ay, so she was intubated. She has remained intubated, and is not following commands or answering que stions. PAST MEDICAL HISTORY: Trigeminal neuralgia. MEDICATIONS: Tramadol. ALLERGIES: None. SOCIAL HISTORY: The patient lives independently and has family in the area, who are here with her. FAMILY HISTORY: Unremarkable. REVIEW OF SYSTEMS: Unobtainable. PHYSICAL EXAMINATION: GENERAL: The patient is intubated and unresponsive. She has been off sedatio n for about an hour. HEENT: She has some mild periorbital edema. She had an endotracheal tube in [place]. NECK: C-collar is in place. CARDIAC: Regular rate and rhythm without murmur. ABDOMEN: Soft , nontender. Bowel sounds present. EXTREMITIES: No clubbing, cyanosis, or edema. LABORATORY: Sodium is 145, up from 142. Her potassium is 3.1. CK is 1362, down from 1597. MB frac tion was negative. Her glucose is 135. Albumin is 2.8. Hemoglobin is 13.6 with a white blood count of 12.4. INR is 1.2. An arterial blood gas initially showed a pH of 7.36 with a pO2 of 313, a CO2 o f 35, and a bicarbonate of 20 on 80% oxygen on IMV with a rate of 18 and tidal volume of 450. Repeat blood gas this morning was slightly improved with a pH 7.43, a pCO2 of 32, and a bicarbonate of 22. IMAGING: Chest x-ray shows appropriate placement of the endotracheal tube. There are no abnormal pu lmonary findings. Images reviewed by me. A CT scan of the head shows a left basal ganglia hemorrhag e that is mall with surrounding edema. Images reviewed by me. ASSESSMENT: 1. Basal ganglia cerebrovascular accident. This is hemorrhagic and small with a moderate amount of edema. It would be expected to cause her right hemiparesis. Her lack of responsiveness and minimal movement on the left are however, unexplained. 2. Respiratory failure. The patient has been unable to protect her airway due to her reduced level of consciousness. Current ventilator settings are appropriate. She has no signs of any uncontrolled cardiopulmonary disease currently. PLAN: 1. Continue with mechanical ventilation in this intubated patient. 2. Maintain systemic systolic blood pressure less than 160 per Neurosurgery. 3. Therapeutic hypernatremia will be maintained with hypertonic saline as necessary. 4. Await further Neurology recommendations regarding her level of consciousness. 5. The patient will be weaned and extubated once she is more alert. /[id number]/MODL
[2016-06-01] MEDS ORDERED: ALTEPLASE 2 MG VIAL IVP PRN (15:19)
--- NOTE | 2016-06-01 16:21 | DX ---
Chest, One View Portable at 1609 hours History: PICC line placement. Intubation.. Comparison: Same day earlier today. Findings: Cardiac silhouette is normal in size. Tortuous thoracic aorta. Endotracheal tube 3 cm abov e the brigid. Right arm PICC line in the right ventricle. Recommend repositioning. No pneumonia, jayesh estive heart failure, pleural effusion, or pneumothorax. Nasogastric tube in the stomach. Impression: 1. Right arm PICC line in the right ventricle. Recommend repositioning. 2. Endotracheal tube above the brigid. Dr. Fredy Huntley notified at the 1618 hour.
[2016-06-01] MEDS: SODIUM Cl 3% 500 ML IV SCH (16:46)
--- NOTE | 2016-06-01 17:12 | IR ---
Ultrasound-Guided Peripherally Inserted Central Catheter History: Intracranial hemorrhage. Technique: Procedure was performed with the patient in the hospital bed. Following informed consent, the right arm was prepped and draped in sterile fashion. 1% Xylocaine was used for local anesthetic. All elements of maximal sterile barrier technique including cap, mask, sterile gown, sterile gloves , large sterile sheet, hand hygiene, and 2% chlorhexidine for cutaneous antisepsis, followed. Ultraso und transducer was placed in sterile sleeve and used for real-time imaging guidance to enter the basi lic vein. Sterile coupling gel was used. 0.018 measuring wire was passed centrally . . A skin meagan with scalpel blade was followed by removing the access needle. A 5.5 Peruvian peel-away sheath was foll owed by a 5 Peruvian double-lumen central catheter, trimmed to 45 cm length. The length of catheter was estimated from external measurements. The hub of the catheter was fixed to the skin using a sterile StatLock adhesive device, and a sterile dressing was applied. The catheter irrigated easily. A portable chest radiograph was requested and will be reported separately. Impression: Ultrasound-guided 5 Peruvian double-lumen peripherally inserted central catheter; radiograp hic confirmation is pending. - - - - - - - - - - - - - - - - - - - - - - - - - - - - - - - - - - - - - - - - - - - (Cross-cutting measures: Current medications, including all known prescriptions, [id number] me dications, herbal medications, and nutritional supplements are listed in the medical record. The pat ient does not smoke. ) IR call
[2016-06-01 17:24] LABS: POTASSIUM 3.9 mEq/L (3.5-5.2)
[2016-06-01] MEDS ORDERED: POTASSIUM Cl (KCl) 50 ML IV ONE (18:10)
[2016-06-02 01:07] LABS: POTASSIUM 3.8 mEq/L (3.5-5.2); SODIUM 151 mEq/L (134-144)
[2016-06-02] MEDS ORDERED: POTASSIUM Cl (KCl) 50 ML IV ONE ×2 (01:12→06:32)
[2016-06-02] MEDS: SODIUM Cl 3% 500 ML IV SCH ×2 (03:38→18:25)
[2016-06-02 06:12] LABS: HEMATOCRIT 34.9 % (38.0-47.0); HEMOGLOBIN 11.4 g/dL (12.6-16.3); MEAN CELL HEMOGLOBIN 31.7 pg (27.9-34.1); MEAN CELL HEMOGLOBIN CONCENTR. 32.7 g/dL (32.4-36.7); MEAN CELL VOLUME 96.9 fL (81.5-99.8); RED BLOOD CELL COUNT 3.6 10^6/uL (4.18-5.33); RED CELL DISTRIBUTION WIDTH 13.2 % (11.5-15.2)
[2016-06-02 06:25] LABS: POTASSIUM 3.8 mEq/L (3.5-5.2); SODIUM 155 mEq/L (134-144)
--- NOTE | 2016-06-02 07:22 | SOAPPROG ---
SOAP Progress Note Assessment/Plan: Assessment: 80 yo F with left basal ganglia hemorrhage. Plan: stable on 3%, Na up to 155, will turn down Na to 30 ml/hr, Q6 hour neuro checks PT/OT will order MRI of brain to better evaluate lesion please call with neuro changes pt was seen by Dr Valladares 06/02/16 07:18 Subjective: chart reviewed. Objective: Vital Signs Temp Pulse Resp BP Pulse Ox 37.5 C 64 18 153/66 H 100 06/02/16 06:00 06/02/16 06:00 06/02/16 06:00 06/02/16 06:00 06/02/16 06:00 Laboratory Results 06/02/16 05:40 06/02/16 05:40 06/01/16 06/02/16 06/03/16 05:59 05:59 05:59 Intake Total 2560.5 2824 Output Total 1540 1475 Balance 1020.5 1349 PT 14.8 SEC (12.0-15.0) 06/01/16 05:00 INR 1.16 (0.83-1.16) 06/01/16 05:00 intubated, sedated Pupils: 3 mm ou weakness in right arm/leg, left arm/leg moves spontaneously but not to command ICD10 Worksheet Patient Problems: Problems Problem Status Diagnosed Intraparenchymal hemorrhage of brain Acute Respiratory failure Acute
[2016-06-02] MEDS: FAMOTIDINE 20 MG/NACL 50 ML IV SCH ×2 (08:42→20:15)
[2016-06-02] MEDS: CHLORHEXIDINE GLUCONATE 15 ML UDL PO SCH ×2 (08:43→19:45)
[2016-06-02] MEDS: hydrALAZINE 20 MG/ML VIAL IVP PRN ×2 (08:43→16:52)
--- NOTE | 2016-06-02 09:47 | NEUROPROG ---
Assessment: Stable left ICH with severe deficits. Subjective: Pt cannot communicate. She has become a little more alert per son. She had ICH. I reviewed her case and the consult from Dr. Michel. No new issues have arisen. She remains intubated. Objective: Vital Signs Temp Pulse Resp BP Pulse Ox 37.5 C 64 18 148/67 H 99 06/02/16 07:18 06/02/16 07:18 06/02/16 07:18 06/02/16 07:18 06/02/16 07:18 Laboratory Results 06/02/16 05:40 06/02/16 05:40 06/01/16 06/02/16 06/03/16 05:59 05:59 05:59 Intake Total 2560.5 2824 Output Total 1540 1475 Balance 1020.5 1349 PT 14.8 SEC (12.0-15.0) 06/01/16 05:00 INR 1.16 (0.83-1.16) 06/01/16 05:00 Awake with poor attention and not following commands. She has right side hemiplegia and seems ok on the left. She will not track with her eyes. No clinical seizure activity. Left basal ganglia ICH. Allergies/Adverse Reactions: No Known Allergies Allergy (Unverified 05/31/16 23:20)
[2016-06-02 12:12] LABS: POTASSIUM 3.4 mEq/L (3.5-5.2); SODIUM 156 mEq/L (134-144)
[2016-06-02] MEDS: POTASSIUM Cl (KCl) 50 ML IV SCH ×6 (12:56→19:43)
--- NOTE | 2016-06-02 14:17 | PDINTPN ---
Management Supervisor Progress Note Assessment/Plan: Assessment: Stroke: Associated with bleed in the left basal ganglia region. Not a candidate for neuro surgical approaches. Appreciate Neurology consultation. Acute respiratory failure: Secondary to 1. Not able to protect airway. Stable on the ventilator. On 40%. Can start CPAP weans but would like mental status to improve prior to considering extubation. Metabolic: Sodium is rising secondary to hypertonic saline. Rate decreased. Checking sodium every 6 hours DVT prophylaxis: SCDs GI prophylaxis: Famotidine Nutrition: None currently. Will consider starting gastric feedings tomorrow. Plan: Continue care in the intensive care unit on the ventilator. Will start CPAP weans today. Follow neuro status. MRI to be ordered. This can be done tomorrow, hopefully on a T-piece. Follow chest x-ray, blood gas in laboratory. 45 minutes of critical care time spent directly with the patient. Discussed with the patient's , Neurology, nursing, respiratory, and the ICU multi disciplinary team. Subjective: Unresponsive, lightly sedated, on ventilator. Objective: Vital Signs Temp Pulse Resp BP Pulse Ox 37.8 C 72 19 132/60 H 100 06/02/16 12:00 06/02/16 13:25 06/02/16 13:25 06/02/16 12:00 06/02/16 13:25 Laboratory Results 06/02/16 05:40 06/02/16 11:50 06/01/16 06/02/16 06/03/16 05:59 05:59 05:59 Intake Total 2560.5 2824 Output Total 1540 1475 Balance 1020.5 1349 PT 14.8 SEC (12.0-15.0) 06/01/16 05:00 INR 1.16 (0.83-1.16) 06/01/16 05:00 Laboratory Tests 06/02/16 11:50 Sodium 156 H Potassium 3.4 L Physical Exam - Physical Exam General Appearance: no apparent distress, obtunded, No alert EENT: PERRL/EOMI (Eyes deviated towards the left), ET tube, other (OG tube in place) Neck: normal inspection Respiratory: lungs clear, decreased breath sounds, No rales, No rhonchi Cardiac/Chest: regular rate, rhythm Abdomen: soft, No normal bowel sounds (Decreased, present) Pelvic Exam: other Extremities: pedal edema (Trace) Neuro/Psych: cognition abnormalities (Remains unresponsive, gaze preference to left,), No no motor/sensory deficits ICD10 Worksheet Patient Problems: Problems Problem Status Diagnosed Intraparenchymal hemorrhage of brain Acute Respiratory failure Acute
--- NOTE | 2016-06-02 16:01 | HOSPPROG ---
Hospitalist Progress Note Assessment/Plan: 80 yo F with hx of HTN presenting with ICH and severe deficits # left basal ganglia ICH: with significant deficits and unresponsiveness essentially currently. Not amenable to surgical intervention, appreciate nsg/ neuro consultations. Continued on hypertonic saline with goal na > 145. Goal bp < 140. Repeat head ct personally reviewed showing no change in ICH. MRI planned per nsg # acute respiratory failure: 2/2 above and resultant inability to protect her airway, remains on vent # pressure injuries: please see wound care notes for description and plan # htn: with goal < 140 given ICH, continue hydralazine and labetalol prn # dispo: IP status, patient remains critically ill in ICU on ventilator requiring IV antihypertensive medications Patient new to my care. Old records reviewed and summarized as above. Reviewed care plan with family at bedside and Dr. Maldonado on multidisciplinary rounds. Subjective: no significant overnight events, patient remains intubated, non responsive Objective: Vital Signs Temp Pulse Resp BP Pulse Ox 37.8 C 72 19 132/60 H 100 06/02/16 12:00 06/02/16 13:25 06/02/16 13:25 06/02/16 12:00 06/02/16 13:25 Laboratory Results 06/02/16 05:40 06/02/16 11:50 06/01/16 06/02/16 06/03/16 05:59 05:59 05:59 Intake Total 2560.5 2824 Output Total 1540 1475 Balance 1020.5 1349 PT 14.8 SEC (12.0-15.0) 06/01/16 05:00 INR 1.16 (0.83-1.16) 06/01/16 05:00 intubated, not responsive anicteric ett in place rrr no mrg cta to ant exam, bronchial bs soft nt nd no cce warm dry well perfused non responsive, moves left side minimally ICD10 Worksheet Patient Problems: Problems Problem Status Diagnosed Intraparenchymal hemorrhage of brain Acute Respiratory failure Acute
[2016-06-02 18:14] LABS: POTASSIUM 3.6 mEq/L (3.5-5.2); SODIUM 157 mEq/L (134-144)
[2016-06-02] MEDS: PROPOFOL/EMULSION 50 ML IV SCH (18:30)
[2016-06-02] MEDS ORDERED: PROPOFOL/EMULSION 500 MG/50 ML BOTTLE IV ONE (18:38)
[2016-06-02] MEDS: NS W/ 20 KCl/L 1,000 ML IV SCH (20:17)
[2016-06-02] MEDS ORDERED: GADOBUTROL 10 ML VIAL IVP ONE (21:55)
--- NOTE | 2016-06-02 23:23 | MR ---
MRI of the Brain(Without and With Contrast) Contrast: 8 mL intravenous Gadavist without complication. History: Follow-up left basal ganglia hemorrhage, patient required sedation due to motion Comparison: Noncontrast CT yesterday Technique: Sagittal and axial T1-weighted images. Axial fast T2 2nd echo, GRE, diffusion and FLAIR im ages. Postgadolinium axial and coronal images. Findings: The extent of the left basal ganglia hemorrhage is much easier to see on the SWI sequence w here it measures 3.2 x 2.8 cm and clearly extends into the caudate nucleus through the upper portion of the left internal capsule. There is adjacent vasogenic edema with mild mass effect on the frontal horn of the right lateral ventricle. There is perhaps 1 mm of [id number] shift. There is no eviden ce for intraventricular or subarachnoid hemorrhage. The ambient cistern remains widely patent. On the diffusion study there is scattered patchy restricted diffusion in the left temporal, parietal and po sterior frontal cortex as well as the left temporal occipital white matter, consistent with ischemic infarction, either related to vasospasm or potentially an embolic phenomenon secondary to a fragmente d thrombus. 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 There is no evidenc e for hemorrhage or stroke in the right hemisphere or a posterior fossa abnormality. There is no abno rmal gadolinium enhancement within the hemorrhage, in the brain parenchyma elsewhere or meninges. Rig ht scalp edema remains. impression: 1. The left basal ganglia hemorrhage is more expansive than expected from the CT 2. Left middle cerebral arterial territory ischemic multifocal, relatively small infarctions, suggest that the patient experienced a shower of embolic phenomenon. There is no evidence for underlying mario or.
[2016-06-03 00:43] LABS: POTASSIUM 3.8 mEq/L (3.5-5.2); SODIUM 160 mEq/L (134-144)
[2016-06-03] MEDS ORDERED: POTASSIUM Cl (KCl) 50 ML IV ONE (00:50)
[2016-06-03] MEDS: PROPOFOL/EMULSION 50 ML IV SCH ×2 (01:03→06:19)
[2016-06-03 06:21] LABS: % IMMATURE GRANULYOCYTES 0.8 % (0.0-1.1); ABSOLUTE IMMATURE GRANULOCYTES 0.09 10^3/uL (0.00-0.10); ADD DIFF? NO; ADD MORPH? NO; ADD SCAN? NO; ATYPICAL LYMPHOCYTE FLAG 0 (0-99); FRAGMENT RBC FLAG 0 (0-99); HEMATOCRIT 32.3 % (38.0-47.0); HEMOGLOBIN 10.5 g/dL (12.6-16.3); LEFT SHIFT FLG 20 (0-99); LIPEMIA HEMOLYSIS FLAG 80 (0-99); MEAN CELL HEMOGLOBIN 31.9 pg (27.9-34.1); MEAN CELL HEMOGLOBIN CONCENTR. 32.5 g/dL (32.4-36.7); MEAN CELL VOLUME 98.2 fL (81.5-99.8); MEAN PLATELET VOLUME 9.8 fL (8.7-11.7); PLATELET CLUMPS FLAG 0 (0-99); PLATELET COUNT 161 10^3/uL (150-400); RED BLOOD CELL COUNT 3.29 10^6/uL (4.18-5.33); RED CELL DISTRIBUTION WIDTH 13.8 % (11.5-15.2)
[2016-06-03 06:36] LABS: BASE EXCESS -5.3 mEq/L (-2.5-2.5); BICARBONATE 18 mEq/L (22-26); MEASURED OXYGEN SATURATION 98 % (92-95); PCO2 31 mmHg (34-38); PO2 95 mmHg (65-75); TCO2 19 mEq/L (23-27)
[2016-06-03 06:38] LABS: CPAP YES
[2016-06-03 06:39] LABS: END TIDAL CO2 33; O2 CONCENTRATIION 30 % (0-100); P/F RATIO 317 RATIO; PATIENT RATE 18; PRESSURE SUPPORT 10
[2016-06-03 06:56] LABS: ALANINE AMINOTRANSFERASE 34 IU/L (9-52); ALBUMIN 2.8 g/dL (3.5-5.0); ALKALINE PHOSPHATASE 41 IU/L (38-126); ANION GAP 9 mEq/L (8-16); ASPARTATE AMINOTRANSFERASE 22 IU/L (14-46); BILIRUBIN,TOTAL 0.7 mg/dL (0.1-1.4); CALCIUM 8.9 mg/dL (8.5-10.4); CARBON DIOXIDE 20 mEq/l (22-31); CREATININE 0.6 mg/dL (0.6-1.0); GLOMERULAR FILTRATION RATE > 60; GLUCOSE 129 mg/dL (70-100); POTASSIUM 4.3 mEq/L (3.5-5.2); SODIUM 159 mEq/L (134-144); TOTAL PROTEIN 5.1 g/dL (6.3-8.2)
[2016-06-03 07:07] LABS: CHLORIDE 130 mEq/L (97-110)
[2016-06-03] MEDS: CHLORHEXIDINE GLUCONATE 15 ML UDL PO SCH ×2 (08:13→19:56)
[2016-06-03] MEDS: FAMOTIDINE 20 MG/NACL 50 ML IV SCH ×2 (08:16→21:26)
--- NOTE | 2016-06-03 09:28 | DX ---
Portable AP chest, 4:19 a.m. June 03, 2016 Clinical History: 80-year-old female with a recent hemorrhagic infarct, presenting for follow up of r espiratory status, currently intubated. Comparison Study: Chest, dated June 01, 2016, at 4:09 p.m. Findings: The patient is slightly rotated to the right. There is stable positioning of the endotrache al tube, which terminates 4.2 cm above the brigid. There is a right-sided PICC line which terminates in the caudal right atrium and could be pulled back 4 cm. There is an esophagogastric tube which exte nds inferiorly off the edge of the radiograph, however following a normal anatomical course to the [facility]. Telemetry monitoring lead lines and oxygen tubing are in place. The cardiac size remains stabl e and normal. The lungs are well-expanded, with no focal infiltrate, pleural effusion, peripheral int erstitial edema, or pneumothorax. Impression: Radiographically unchanged from 06/01/2016. The right-sided PICC line could be withdrawn 4 cm. Results were conveyed to Brianda, the ICU nurse. A test result has been communicated to a licensed care provider and documented in the [employer] Critical Result system on 06/03/2016 9:23, Message ID [id number].
--- NOTE | 2016-06-03 09:33 | NEUSURGPN ---
Assessment/Plan: Assessment: 80 yo F with left basal ganglia hemorrhage. Plan: Patient neuro exam stable- still not following commands, movements are purposeful on 3%, Na up to 160 overnight so 3% turned off, this am 159- continue to hold off 3%- will recheck Na in 6 hours PT/OT MRI of the brain w and wo contrast performed and shows left basal ganglia hemorrhage more expansive than expected on CT also shows left middle cerebral arterioal territory ischemic multifocal small infarctions. No evidence of underlying tumor. -Will discuss findings with Dr. Valladares please call with neuro changes- continue light sedation to try and get better exam. pt was discussed with Dr. Valladares Subjective: Intubated. Objective: VSS, Na 159 Intubated Purposeful movements of BLE L>R, and LUE, no movements seen on stimulation on RUE PERRL- Does not open eyes to command, but to pain briefly Neuro Check Frequency: 6 Catheter Insertion Date: 05/31/16 - Physician Discussed Patient with : [facility] Physical Exam - Vitals, I&O, Labs I and O 06/02/16 06/03/16 06/04/16 05:59 05:59 05:59 Intake Total 2824 1819.2 Output Total 1475 1579 Balance 1349 240.2 Intake: IV Intake (ml) 530 IV Infused (ml) 2824 1289.2 Propofol/Emulsion 100 ml 35 @ Titrate IV CONT NOEMI Rx# :[id number] NS W/ 20 KCl/L 1,000 ml @ 1125 50 mls/hr IV CONT NOEMI Rx #:[id number] Sodium Cl 23.4% 308 meq 1105 In Water For Injection, Sterile 1,000 ml @ 100 mls/hr IV CONT NOEMI Rx#: [id number] SODIUM Cl 3% 500 ml @ 20 559 480 mls/hr IV CONT NOEMI Rx#: [id number] Propofol/Emulsion 50 ml @ 35.2 Per Protocol IV CONT NOEMI Rx#:[id number] NS W/ 20 KCl/L 1,000 ml @ 774 75 mls/hr IV CONT NOEMI Rx #:[id number] Output: Urine (ml) 825 1179 Catheter 825 1179 OG Drainage (ml) 650 400 Large Bore (>12 [place]) 650 400 Non-weighted [place] Sump Other: Number of Stools Catheter 1 Incontinence 1 Vital Signs Temp Pulse Resp BP Pulse Ox 37.4 C 62 18 126/53 H 100 06/03/16 08:00 06/03/16 08:00 06/03/16 08:00 06/03/16 08:00 06/03/16 08:00 Laboratory Results 06/03/16 05:50 06/03/16 05:50 ICD10 Worksheet Patient Problems: Problems Problem Status Diagnosed Intraparenchymal hemorrhage of brain Acute Respiratory failure Acute
[2016-06-03 12:30] LABS: SODIUM 160 mEq/L (134-144)
--- NOTE | 2016-06-03 14:26 | HOSPPROG ---
Hospitalist Progress Note Assessment/Plan: 80 yo F with hx of HTN presenting with ICH and severe deficits # left basal ganglia ICH: on personal review of brain MRI, noted that more expansive than previously thought with associated multiple areas of ischemia suggestive of embolic phenomenon. Patient with significant deficits and only slightly responsive to pain. Not amenable to surgical intervention, appreciate nsg/neuro consultations. Continued on hypertonic saline with goal na > 145. Goal bp < 140. 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, remains on vent # cerebral edema: in association with ICH as above # therapeutic hypernatremia: as above, on hypertonic saline for goal na > 145 # anemia: has trended down since admission, no e/o active bleeding, will continue to trend # pressure injuries: please see wound care notes for description and plan # mild rhabdomyolysis: with ck > 1000 on admission in the setting of being found down, renal function has been stable # htn: with goal < 140 given ICH, continue hydralazine and labetalol prn # dispo: IP status, patient remains critically ill in ICU on ventilator requiring IV antihypertensive medications Reviewed care plan with family at bedside and Dr. Maldonado on multidisciplinary rounds. Subjective: no significant overnight events, patient remains on ventilator, non responsive Objective: Vital Signs Temp Pulse Resp BP Pulse Ox 37.7 C 84 20 143/55 H 100 06/03/16 12:00 06/03/16 13:40 06/03/16 13:40 06/03/16 12:00 06/03/16 13:40 Laboratory Results 06/03/16 05:50 06/03/16 12:00 06/02/16 06/03/16 06/04/16 05:59 05:59 05:59 Intake Total 2824 1819.2 Output Total 1475 1579 105 Balance 1349 240.2 -105 PT 14.8 SEC (12.0-15.0) 06/01/16 05:00 INR 1.16 (0.83-1.16) 06/01/16 05:00 intubated, not responsive anicteric ett in place rrr no mrg cta to ant exam, bronchial bs soft nt nd no cce warm dry well perfused non responsive, moves left side minimally ICD10 Worksheet Patient Problems: Problems Problem Status Diagnosed Intraparenchymal hemorrhage of brain Acute Respiratory failure Acute
[2016-06-03] MEDS ORDERED: PROPOFOL/EMULSION 100 ML IV SCH (15:55)
[2016-06-03] MEDS ORDERED: FUROSEMIDE 20 MG/2 ML VIAL IVP ONE (16:10)
--- NOTE | 2016-06-03 16:42 | PDINTPN ---
Nnps Progress Note Assessment/Plan: Assessment: Stroke: Associated with bleed in the left basal ganglia region more extensive by MRI then evident on CT scan. Also has some scattered infarcts in the middle cerebral artery distribution on the left. Not a candidate for neuro surgical approaches. Appreciate Neurology consultation. Acute respiratory failure: Secondary to 1. Not able to protect airway. Stable on the ventilator or on trach collar. On 30% now. Could possibly be extubated and breathing acceptably however would be unable to protect her airway. Metabolic: Hypernatremic secondary to hypertonic saline, currently on hold. No evidence of DI. Checking sodium every 6 hours. Starting to get some free water with tube feeding flushes. Also on normal saline which is hypotonic for her. DVT prophylaxis: SCDs GI prophylaxis: Famotidine Nutrition: Starting to feeding. Plan: Continue care in the intensive care unit on the ventilator. Can be on T- piece for more extended peroiods of time. Follow neuro status. Await further Neurology input regarding their feeling of her prognosis. Follow chest x-ray, blood gas in laboratory. 45 minutes of critical care time spent directly with the patient. Discussed with the patient's son and grand dtr, nursing, respiratory, and the ICU multi disciplinary team. Subjective: Unresponsive. On ventilator. Moving lower extremities greater than upper extremities spontaneously. Will not respond to questions or commands. Does not track with eyes Objective: Vital Signs Temp Pulse Resp BP Pulse Ox 37.8 C 75 20 140/56 H 100 06/03/16 16:00 06/03/16 16:00 06/03/16 16:00 06/03/16 16:00 06/03/16 16:00 Laboratory Results 06/03/16 05:50 06/03/16 12:00 06/02/16 06/03/16 06/04/16 05:59 05:59 05:59 Intake Total 2824 1819.2 Output Total 1475 1579 185 Balance 1349 240.2 -185 PT 14.8 SEC (12.0-15.0) 06/01/16 05:00 INR 1.16 (0.83-1.16) 06/01/16 05:00 Laboratory Tests 06/03/16 06/03/16 05:50 06:00 pCO2 31 L pO2 95 H ABG pH 7.39 O2 Concentration % 30 CPAP YES Sodium 159 H Potassium 4.3 Chloride 130 H D Carbon Dioxide 20 L BUN 24 H Creatinine 0.6 Glucose 129 H Calcium 8.9 Total Bilirubin 0.7 AST 22 ALT 34 Albumin 2.8 L CXR: No pulmonary infiltrates. PICC line somewhat deep. Lines and tubes otherwise okay. Physical Exam - Physical Exam General Appearance: obtunded, other (On ventilator) EENT: PERRL/EOMI (Conjugated, does not track), ET tube, other (OG in place) Neck: normal inspection (No JVD) Respiratory: lungs clear (Anteriorly), decreased breath sounds (At bases), No rhonchi Cardiac/Chest: regular rate, rhythm Abdomen: normal bowel sounds, non-tender, soft, other (OG tube in place) Pelvic Exam: other (Output somewhat decreased this afternoon) Skin: normal color, warm/dry Neuro/Psych: cognition abnormalities (Obtunded, unresponsive), No no motor/ sensory deficits (Moves lower extremities, left greater than right, moves left upper extremity right) ICD10 Worksheet Patient Problems: Problems Problem Status Diagnosed Intraparenchymal hemorrhage of brain Acute Respiratory failure Acute
[2016-06-03 18:46] LABS: POTASSIUM 3.6 mEq/L (3.5-5.2); SODIUM 157 mEq/L (134-144)
[2016-06-03] MEDS: POTASSIUM Cl (KCl) 50 ML IV SCH ×3 (19:47→21:51)
[2016-06-04] MEDS: NS W/ 20 KCl/L 1,000 ML IV SCH (00:18)
[2016-06-04 01:15] LABS: POTASSIUM 4.1 mEq/L (3.5-5.2); SODIUM 157 mEq/L (134-144)
[2016-06-04 04:20] LABS: HEMATOCRIT 31.4 % (38.0-47.0); HEMOGLOBIN 10.1 g/dL (12.6-16.3); MEAN CELL HEMOGLOBIN 31.6 pg (27.9-34.1); MEAN CELL HEMOGLOBIN CONCENTR. 32.2 g/dL (32.4-36.7); MEAN CELL VOLUME 98.1 fL (81.5-99.8); RED BLOOD CELL COUNT 3.2 10^6/uL (4.18-5.33); RED CELL DISTRIBUTION WIDTH 14.1 % (11.5-15.2)
[2016-06-04 04:39] LABS: ALANINE AMINOTRANSFERASE 43 IU/L (9-52); ALBUMIN 2.8 g/dL (3.5-5.0); ALKALINE PHOSPHATASE 50 IU/L (38-126); ANION GAP 10 mEq/L (8-16); ASPARTATE AMINOTRANSFERASE 46 IU/L (14-46); BILIRUBIN,TOTAL 0.7 mg/dL (0.1-1.4); CALCIUM 8.7 mg/dL (8.5-10.4); CARBON DIOXIDE 24 mEq/l (22-31); CHLORIDE 127 mEq/L (97-110); CREATININE 0.6 mg/dL (0.6-1.0); GLOMERULAR FILTRATION RATE > 60; GLUCOSE 178 mg/dL (70-100); POTASSIUM 4.1 mEq/L (3.5-5.2); TOTAL PROTEIN 5.1 g/dL (6.3-8.2)
[2016-06-04 04:53] LABS: SODIUM 161 mEq/L (134-144)
[2016-06-04] MEDS ORDERED: D5W 1,000 ML IV SCH (05:15)
[2016-06-04 06:17] LABS: BASE EXCESS -1.8 mEq/L (-2.5-2.5); BICARBONATE 21 mEq/L (22-26); MEASURED OXYGEN SATURATION 98 % (92-95); PCO2 32 mmHg (34-38); PO2 97 mmHg (65-75); TCO2 22 mEq/L (23-27)
[2016-06-04 06:18] LABS: O2 CONCENTRATIION 35 % (0-100); P/F RATIO 277 RATIO
--- NOTE | 2016-06-04 07:33 | NEUSURGPN ---
[id number]: try to extubate Hospitalists/critical care managing hypernatremia. Therapies as tolerated. pt was discussed with Dr. Valladares - no surgical intervention planned Subjective: Intubated. Opens eyes to tactile stimulation. Moving left LE/LUE purposefully, no movement o appears comfortable Subjective: intubated, no sedation. eyes closed, opens to tactile stimulation. moving LLE spontaneously Objective: MRI of the brain w/wo shows left basal ganglia hemorrhage more expansive than expected on CT also shows left middle cerebral arterioal territory ischemic multifocal small infarctions. No evidence of underlying tumor. Urinary Catheter in Place: Yes Urinary Catheter Indication: Other (Use Comment) (intubated) Catheter Insertion Date: 05/31/16 Neurosurgery Physical Exam - Vitals, I&O, Labs I and O 06/03/16 06/04/16 06/05/16 05:59 05:59 05:59 Intake Total 1819.2 3884 Output Total 1579 1710 Balance 240.2 2174 Intake: IV Intake (ml) 530 968 IV Infused (ml) 1289.2 2196 SODIUM Cl 3% 500 ml @ 20 480 mls/hr IV CONT NOEMI Rx#: [id number] Propofol/Emulsion 50 ml @ 35.2 11 Per Protocol IV CONT NOEMI Rx#:[id number] NS W/ 20 KCl/L 1,000 ml @ 774 2185 100 mls/hr IV CONT NOEMI Rx#:[id number] Tube Feeding (ml) 420 Tube Flush (ml) 300 Output: Urine (ml) 1179 1710 Catheter 1179 1710 OG Drainage (ml) 400 Large Bore (>12 [place]) 400 Non-weighted [place] Sump Other: Number of Stools Incontinence 1 Vital Signs Temp Pulse Resp BP Pulse Ox 37.8 C 83 19 131/56 H 99 06/04/16 06:00 06/04/16 06:00 06/04/16 06:00 06/04/16 06:00 06/04/16 06:00 Laboratory Results 06/04/16 04:08 06/04/16 04:08 ICD10 Worksheet Patient Problems: Problems Problem Status Diagnosed Intraparenchymal hemorrhage of brain Acute Respiratory failure Acute
[2016-06-04] MEDS: CHLORHEXIDINE GLUCONATE 15 ML UDL PO SCH (08:07)
[2016-06-04] MEDS: FAMOTIDINE 20 MG/NACL 50 ML IV SCH (08:07)
[2016-06-04] MEDS ORDERED: ONDANSETRON DISINTEGRATING 4 MG TAB TUBE PRN (08:12)
[2016-06-04] MEDS ORDERED: ACETAMINOPHEN 650 MG/20.3 ML UDCUP TUBE PRN (08:13)
[2016-06-04 08:59] LABS: ANION GAP 8 mEq/L (8-16); CALCIUM 8.7 mg/dL (8.5-10.4); CARBON DIOXIDE 24 mEq/l (22-31); CHLORIDE 124 mEq/L (97-110); CREATININE 0.6 mg/dL (0.6-1.0); GLOMERULAR FILTRATION RATE > 60; GLUCOSE 226 mg/dL (70-100); POTASSIUM 3.9 mEq/L (3.5-5.2); SODIUM 156 mEq/L (134-144)
[2016-06-04 13:44] LABS: ANION GAP 7 mEq/L (8-16); CALCIUM 8.2 mg/dL (8.5-10.4); CARBON DIOXIDE 24 mEq/l (22-31); CHLORIDE 115 mEq/L (97-110); CREATININE 0.5 mg/dL (0.6-1.0); GLOMERULAR FILTRATION RATE > 60; GLUCOSE 369 mg/dL (70-100); POTASSIUM 3.5 mEq/L (3.5-5.2); SODIUM 146 mEq/L (134-144)
[2016-06-04] MEDS ORDERED: NS W/ 20 KCl/L 1,000 ML IV SCH (14:15)
[2016-06-04] MEDS: POTASSIUM Cl (KCl) 50 ML IV SCH ×3 (14:43→15:51)
[2016-06-04] MEDS ORDERED: EPINEPHrine RACEMIC INH 0.5 ML DEYVIAL IH ONE (14:45)
[2016-06-04] MEDS ORDERED: GLYCOPYRROLATE 0.2 MG/1 ML VIAL ONE (15:01)
[2016-06-04] MEDS ORDERED: EPINEPHrine RACEMIC INH 0.5 ML DEYVIAL IH PRN (15:17)
--- NOTE | 2016-06-04 15:31 | PDPCPN ---
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 Found to have acute left basal ganglia hemorrhage as well as left MCA multi focal infarcts. Intubated on arrival for airway protection. Mostly obtunded though will open eyes to voice and spontaneously move her left side. Overall prognosis is poor. Palliative care consulted for complex medical decision making. Met with family outside of the room including her daughter Renate, 2 granddaughters, and sons Erasto and Jerry. Dr Sung present medical )updates about her condition with severe stroke with unknown prognosis but probably limited recovery. He spoke about specifically her mobility on the right side as well as speech will be severely affected. Went over different options including full care (trach/PEG), DNR but continue medical support with possible longer term artificial nutrition needed, or comfort care only. Jamel brought in her MDPOA and living will which is standard and states if she were in a vegetative state she would only want to continue artificial nutrition for 10 days before this being stopped. The family spoke of Kacy being a very active and independent person prior to hospitalization. Her granddaughter in particular remembers a conversation around end of life issues in which Kacy stated she most values interaction with people. Meaning to her being able to verbally talk and understand conversation to be able to interact. We discussed proceeding with extubation as medically ready with a "wait and see" how she does over the next few days. If she gets worse with for example a PNA then the family elected to not re intubate at that time. The family has also decided on DNR if her heart stops to not have CPR or chest compressions. Assessment: Physical: - Pain: appears comfortable - monitor for non verbal s/s of pain - Dyspnea: on vent - management per ICU Emotional/psychological: obtunded Advanced Care Planning: Is patient decisional?: No Code Status: DNR POA: son Erasto is MDPOA. Plan: Will see how she does over the next few days and re visit end of life decisions as needed as well as goals of care. Subjective: unable to obtain, obtunded on ventilator Objective: Social History: . 3 children involved. Medication list reviewed ROS: unable to obtain Functional assessment: PPS: 20% Functional status: dependent on ADLs, IADLs Vital Signs Temp Pulse Resp BP Pulse Ox 38.0 C 117 H 29 H 151/67 H 97 06/04/16 12:00 06/04/16 15:02 06/04/16 14:00 06/04/16 15:02 06/04/16 14:00 Laboratory Results 06/04/16 04:08 06/04/16 12:13 06/03/16 06/04/16 06/05/16 05:59 05:59 05:59 Intake Total 1819.2 3884 Output Total 1579 1710 275 Balance 240.2 2174 -275 PT 14.8 SEC (12.0-15.0) 06/01/16 05:00 INR 1.16 (0.83-1.16) 06/01/16 05:00 Physical Exam - Physical Exam General Appearance: obtunded Respiratory: other (on ventilator ), No respiratory distress, No accessory muscle use Skin: normal color, warm/dry Extremities: pedal edema Neuro/Psych: other (opens eyes to voice) ICD10 Worksheet Patient Problems: Problems Problem Status Diagnosed Intraparenchymal hemorrhage of brain Acute Respiratory failure Acute
--- NOTE | 2016-06-04 15:46 | HOSPPROG ---
Hospitalist Progress Note Assessment/Plan: 80 yo F with hx of HTN presenting with ICH and severe deficits # left basal ganglia ICH: on personal review of brain MRI, noted that more expansive than previously thought with associated multiple areas of ischemia suggestive of embolic phenomenon. Patient with significant deficits and only slightly responsive to pain. Not amenable to surgical intervention, continued on hypertonic saline with goal na > 145. Goal bp < 140. 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, remains on vent # cerebral edema: in association with ICH as above # therapeutic hypernatremia: as above, on hypertonic saline for goal na > 145 # anemia: has trended down since admission, no e/o active bleeding, will continue to trend # pressure injuries: please see wound care notes for description and plan # mild rhabdomyolysis: with ck > 1000 on admission in the setting of being found down, renal function has been stable # htn: with goal < 140 given ICH, continue hydralazine and labetalol prn # dispo: IP status, patient remains critically ill in ICU on ventilator requiring IV antihypertensive medications Reviewed care plan with family at bedside and Dr. Maldonado on multidisciplinary rounds. Reviewed with palliative care. Subjective: no significant overnight events, patient remains minimally responsive Objective: Vital Signs Temp Pulse Resp BP Pulse Ox 38.0 C 117 H 29 H 151/67 H 97 06/04/16 12:00 06/04/16 15:02 06/04/16 14:00 06/04/16 15:02 06/04/16 14:00 Laboratory Results 06/04/16 04:08 06/04/16 12:13 06/03/16 06/04/16 06/05/16 05:59 05:59 05:59 Intake Total 1819.2 3884 Output Total 1579 1710 275 Balance 240.2 2174 -275 PT 14.8 SEC (12.0-15.0) 06/01/16 05:00 INR 1.16 (0.83-1.16) 06/01/16 05:00 intubated, not responsive anicteric ett in place rrr no mrg cta to ant exam, bronchial bs soft nt nd no cce warm dry well perfused non responsive, moves left side minimally ICD10 Worksheet Patient Problems: Problems Problem Status Diagnosed Intraparenchymal hemorrhage of brain Acute Respiratory failure Acute
--- NOTE | 2016-06-04 16:00 | WOCRNPDOC ---
WOCRN Advanced Assessment Note - Skin Integrity Problem, Advanced Assess Right Hip Pressure Injury Dressing Type: Allevyn Life Integumentary Issue Intervention: Dressing Changed Wound Bed Constitution: Smooth Tissue, Draining Serous Blister (partially de- roofed) Pressure Injury Stage: Stage 2 Pressure Injury Present on Admit: Yes Right Orbital Pressure Injury Dressing Type: Open to Air Bonnie Wound Swelling: Mild Pressure Injury Stage: Stage 1 Pressure Injury Present on Admit: Yes Right Lateral Face Pressure Injury Dressing Type: Open to Air Pressure Injury Stage: Stage 1 Pressure Injury Present on Admit: Yes Right Elbow Pressure Injury Dressing Type: Allevyn Life Integumentary Issue Intervention: Visualized Under Dressing Pressure Injury Stage: Deep Tissue Injury (DTI) Pressure Injury Present on Admit: Yes Right Dorsal Hand Pressure Injury Dressing Type: Allevyn Life Integumentary Issue Intervention: Visualized Under Dressing Pressure Injury Stage: Stage 1, Stage 2 Skin Integrity Problem Comment: No concerns regarding any of the pressure injuries. All are healing as expected. Wound care will round again in one week. Brianda HENDRIX in room for care.
--- NOTE | 2016-06-04 16:33 | PDINTPN ---
Hospital Receptionist Progress Note Assessment/Plan: Assessment: Stroke: Associated with bleed in the left basal ganglia region more extensive by MRI then evident on CT scan. Also has some scattered infarcts in the middle cerebral artery distribution on the left. Not a candidate for neuro surgical approaches. Appreciate Neurology consultation. Prognosis appears to be poor regarding return to independent functioning, appropriate communication, etc. Acute respiratory failure: Secondary to 1. Not able to protect airway. Stable on the ventilator or on trach collar. On 30%. After discussions with the family will proceed with extubation. They wish her to be no resuscitation at this time and are contemplating comfort measures only.. Metabolic: Hypernatremic, now improving with D5 W. No evidence of DI. Checking sodium every 6 hours. On free water with tube feeding flushes. DVT prophylaxis: SCDs GI prophylaxis: Famotidine Nutrition: On tube feeding. Advanced directives: Family wishes her to be no cor at this point. Family conference: Issues discussed at length several times with her sons, granddaughters and other family members, and the philosophy specialist. Ultimately, at the end of the day, after many discussions, the family wishes that we go to comfort measures only. In light of her extensive neurologic deficits they feel that she would not want to live with resultant significant disabilities. I discussed this with Neurology as well who feels that her prognosis is quite poor at this point. Plan: After discussions as outlined above, and post extubation, the family has decided to go to comfort measures only. 45 minutes of critical care time spent directly with the patient, not including an additional 45 minutes spent in patient family conference is. Subjective: Sedated, on the ventilator. Appears comfortable. Objective: Vital Signs Temp Pulse Resp BP Pulse Ox 38.0 C 117 H 29 H 151/67 H 97 06/04/16 12:00 06/04/16 15:02 06/04/16 14:00 06/04/16 15:02 06/04/16 14:00 Laboratory Results 06/04/16 04:08 06/04/16 12:13 06/03/16 06/04/16 06/05/16 05:59 05:59 05:59 Intake Total 1819.2 3884 Output Total 1579 1710 450 Balance 240.2 2174 -450 PT 14.8 SEC (12.0-15.0) 06/01/16 05:00 INR 1.16 (0.83-1.16) 06/01/16 05:00 Physical Exam - Physical Exam General Appearance: obtunded, other (Somewhat state inspector, looks to voice. Moves left upper extremity appropriately at times.) EENT: PERRL/EOMI (Tracks at times.), ET tube, other (OG) Neck: normal inspection Respiratory: lungs clear Cardiac/Chest: regular rate, rhythm Abdomen: normal bowel sounds (Tolerating tube feedings), non-tender, soft Pelvic Exam: other (Steward catheter in place) Skin: normal color, warm/dry Lymphatic: no adenopathy Extremities: No pedal edema Neuro/Psych: motor weakness, No no motor/sensory deficits, No cognition abnormalities (Unresponsive to questions, commands. Opens eyes to stimulation. Appears to track now at times. Not moving right upper extremity, right lower extremity some. Moves left side.) ICD10 Worksheet Patient Problems: Problems Problem Status Diagnosed Intraparenchymal hemorrhage of brain Acute Respiratory failure Acute
[2016-06-04] MEDS ORDERED: LORazepam 2 MG/ML INJ ONE (16:47)
[2016-06-04] MEDS: LORazepam 2 MG/ML INJ IVP PRN ×3 (16:57→21:46)
[2016-06-04] MEDS: GLYCOPYRROLATE 0.2 MG/1 ML VIAL IVP PRN ×2 (16:57→21:49)
[2016-06-04] MEDS ORDERED: FAMOTIDINE 20 MG TAB TUBE SCH (21:00)
[2016-06-05] MEDS: LORazepam 2 MG/ML INJ IVP PRN ×5 (00:05→13:32)
[2016-06-05 08:21] VITALS: BP 120/64; PULSE 111; RESP 27; TEMP 101.5; O2SAT 86
[2016-06-05] MEDS: GLYCOPYRROLATE 0.2 MG/1 ML VIAL IVP PRN ×2 (08:44→13:32)
--- NOTE | 2016-06-05 09:55 | PDINTPN ---
[employer] Developer Progress Note Assessment/Plan: Assessment: Stroke: Associated with bleed in the left basal ganglia region more extensive by MRI then evident on CT scan. Also has some scattered infarcts in the middle cerebral artery distribution on the left. Not a candidate for neuro surgical approaches. Family requested comfort care only yesterday. Acute respiratory failure: Resolved. Plan: Will try to arrange a bed for her on inpatient hospice. Otherwise, she will be transferred to a medical-surgical bed in the hospital when available. Comfort measures only will be continued. Addendum: Discussed transfer to hospice inpatient with the hospice physician. They have a bed and will accept her. Transportation to in-patient hospice to be arranged. Discussed with the patient's family. Subjective: Unresponsive, on comfort measures. Appears comfortable. Some rattly respirations. Objective: Vital Signs Temp Pulse Resp BP Pulse Ox 38.6 C H 111 H 27 H 120/64 86 L 06/05/16 07:59 06/05/16 07:59 06/05/16 07:59 06/05/16 07:59 06/05/16 07:59 Laboratory Results 06/04/16 04:08 06/04/16 12:13 06/04/16 06/05/16 06/06/16 05:59 05:59 05:59 Intake Total 3884 1075 Output Total 1710 975 Balance 2174 100 PT 14.8 SEC (12.0-15.0) 06/01/16 05:00 INR 1.16 (0.83-1.16) 06/01/16 05:00 Physical Exam - Physical Exam General Appearance: unresponsive (To stimulation) EENT: other (Nasal cannula in place) Respiratory: rhonchi (Centrally. Peripherally the lungs are clear), other ( Sats in the upper 80s) Cardiac/Chest: regular rate, rhythm Abdomen: soft Neuro/Psych: cognition abnormalities (Unresponsive. Withdraws weakly on the left to stimulation.), No no motor/sensory deficits ICD10 Worksheet Patient Problems: Problems Problem Status Diagnosed Intraparenchymal hemorrhage of brain Acute Respiratory failure Acute
--- NOTE | 2016-06-05 15:45 | HOSPPROG ---
Hospitalist Progress Note Assessment/Plan: 80 yo F with hx of HTN presenting with ICH and severe deficits # left basal ganglia ICH: on personal review of brain MRI, noted that more expansive than previously thought with associated multiple areas of ischemia suggestive of embolic phenomenon. Patient with significant deficits and only slightly responsive to pain. care goals comfort only. 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 from large intracranial hemorrhage, extubated, comfort care # cerebral edema: in association with ICH as above # therapeutic hypernatremia: as above, on hypertonic saline for goal na > 145 # anemia: has trended down since admission, no e/o active bleeding, will continue to trend # pressure injuries: please see wound care notes for description and plan # mild rhabdomyolysis: with ck > 1000 on admission in the setting of being found down, renal function has been stable # htn: given comfort care only, no longer pursuing aggressive bp mgmt # dispo: to hospice in coming days likely, comfort only Subjective: patient now extubated, plan for hospice Objective: Vital Signs Temp Pulse Resp BP Pulse Ox 38.6 C H 111 H 27 H 120/64 86 L 06/05/16 07:59 06/05/16 07:59 06/05/16 07:59 06/05/16 07:59 06/05/16 07:59 Laboratory Results 06/04/16 04:08 06/04/16 12:13 06/04/16 06/05/16 06/06/16 05:59 05:59 05:59 Intake Total 3884 1075 Output Total 1710 975 Balance 2174 100 PT 14.8 SEC (12.0-15.0) 06/01/16 05:00 INR 1.16 (0.83-1.16) 06/01/16 05:00 somnolent, comfortable appearing, family at bedside ICD10 Worksheet Patient Problems: Problems Problem Status Diagnosed Intraparenchymal hemorrhage of brain Acute Respiratory failure Acute
== END 2016-06-05 15:41 | disposition hospice, home (50) | DRG 64 ==
LOC: EDUNIT# → F2N 06-01 00:29
PROVIDERS: ADMIT Student in an Organized Health Care Education/Training Program; ATTEND Student in an Organized Health Care Education/Training Program
PROC: 5A1955Z Respiratory Ventilation, Greater than 96 Consecutive Hours (ICD-10-PCS; principal; 2016-05-31)
PROC: 0BH18EZ Insertion of Endotracheal Airway into Trachea, Via Natural or Artificial Opening Endoscopic (ICD-10-PCS; principal; 2016-05-31)
DX: I63.8 Other cerebral infarction (principal); J96.01 Acute respiratory failure with hypoxia; G93.49 Other encephalopathy; M62.82 Rhabdomyolysis; E87.0 Hyperosmolality and hypernatremia; R40.2431 Glasgow coma scale score 3-8, in the field [EMT or ambulance]; G50.0 Trigeminal neuralgia; D64.9 Anemia, unspecified; I10 Essential (primary) hypertension; L89.212 Pressure ulcer of right hip, stage 2; L89.811 Pressure ulcer of head, stage 1; L89.019 Pressure ulcer of right elbow, unspecified stage; L89.892 Pressure ulcer of other site, stage 2
CPT/HCPCS: 80305; 82947-QW; 96365; A9585; C1751; J0360; J1953; J2704; J3490; Q9967